=== PATIENT | male | born 1975 | race African-American/Black ===

== ENCOUNTER 2017-04-11 18:18 | Emergency (ER) | payer OTHER ==
[~2017-04-11] VITALS: Ht 193 cm; Wt 81.8 kg
[2017-04-11 18:19] VITALS: BP 134/82; PULSE 85; RESP 14; TEMP 98.5; O2SAT 99
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
[2017-04-11] MEDS ORDERED: KETOROLAC TROMETHAMINE 60 MG/2 ML (IM) VIAL IM ONE (21:45)
[2017-04-11] MEDS ORDERED: CYCLOBENZAPRINE HCL 10 MG TAB PO ONE (21:45)
[2017-04-11] MEDS ORDERED: HYDR-3516 PO (21:50)
[2017-04-11] MEDS ORDERED: CYCL5TAB PO (21:50)
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
== END 2017-04-11 22:39 | disposition home or self-care (01) ==
LOC: NEPD 18:18
DX: S16.1XXA Strain of muscle, fascia and tendon at neck level, initial encounter (principal); S66.912A Strain of unspecified muscle, fascia and tendon at wrist and hand level, left hand, initial encounter; S66.911A Strain of unspecified muscle, fascia and tendon at wrist and hand level, right hand, initial encounter; V49.49XA Driver injured in collision with other motor vehicles in traffic accident, initial encounter; Y92.411 Interstate highway as the place of occurrence of the external cause
CPT/HCPCS: 70450; 71046; 72125; 73110; 96372; 99285; J1885